=== PATIENT | male | born 1955 | race Caucasian/White ===

== ENCOUNTER 2021-12-07 04:16 | Day surgery (SDC) | payer BC ==
[2021-12-06 11:58] VITALS: BMI 29.6
[2021-12-07] MEDS ORDERED: MIDAZOLAM HCL 2 MG/2 ML SINGLE DOSE VIAL ONE (17:21)
[2021-12-07] MEDS ORDERED: PROPOFOL 20 ML ONE (17:21)
[2021-12-07] MEDS ORDERED: ROCURONIUM BROMIDE 100 MG/10 ML VIAL ONE (17:21)
[2021-12-07] MEDS ORDERED: DEXAMETHASONE SOD PHOSPHATE 4 MG/1 ML VIAL ONE (18:02)
[2021-12-07] MEDS ORDERED: ONDANSETRON 4 MG/2 ML VIAL ONE (18:02)
[2021-12-07] MEDS ORDERED: CLINDAMYCIN PHOSPHATE 600 MG/4 ML VIAL ONE (18:03)
[2021-12-07] MEDS ORDERED: ePHEDrine SULFATE 50 MG/1 ML AMPULE ONE (18:37)
[2021-12-07] MEDS ORDERED: BUPIVACAINE HCL/PF 0.5% (5 MG/ML) 30 ML VIAL IJ ONE (18:41)
[2021-12-07] MEDS ORDERED: CLINDAMYCIN 600 MG PREMIX BAG IVPB ONE (18:41)
[2021-12-07] MEDS ORDERED: ONDANSETRON 4 MG/2 ML VIAL IVPUSH PRN (19:32)
[2021-12-07] MEDS ORDERED: SODIUM CHLORIDE 1,000 ML IV SCH (19:45)
[2021-12-07 20:25] VITALS: BP 126/64; PULSE 68; TEMP 98.2
== END 2021-12-07 20:45 | disposition home or self-care (01) ==
LOC: JASU-SURG 04:16
PROVIDERS: ATTEND Surgery
PROC: 0WHG43Z Insertion of Infusion Device into Peritoneal Cavity, Percutaneous Endoscopic Approach (ICD-10-PCS; principal; 2021-12-07 16:00)
DX: I12.0 Hypertensive chronic kidney disease with stage 5 chronic kidney disease or end stage renal disease (principal); E11.22 Type 2 diabetes mellitus with diabetic chronic kidney disease; N18.6 End stage renal disease; Z99.2 Dependence on renal dialysis; Z79.84 Long term (current) use of oral hypoglycemic drugs
CPT/HCPCS: 82962; 94760; J1644

== ENCOUNTER 2024-09-17 03:57 | Day surgery (SDC) | payer BC ==
[2024-09-17] MEDS ORDERED: HEPARIN NA (PORCINE) 5,000 UNITS/ML 1ML VIAL ONE (07:03)
[2024-09-17] MEDS ORDERED: LIDOCAINE HCL 1%, 10 MG/ML (20ML VIAL) ONE (07:03)
[2024-09-17 07:13] VITALS: BMI 33.4
[2024-09-17] MEDS ORDERED: PAPAVERINE HCL 30 MG/1 ML 10 ML VIAL NR ONE ×2 (07:26→11:16)
[2024-09-17] MEDS ORDERED: MIDAZOLAM HCL 2 MG/2 ML SINGLE DOSE VIAL ONE (07:48)
[2024-09-17] MEDS ORDERED: PROPOFOL 40 ML ONE (07:48)
[2024-09-17] MEDS: ceFAZolin SODIUM 1 GM VIAL IVPB ONE (08:15)
[2024-09-17] MEDS: LIDOCAINE HCL 1%, 10 MG/ML (50 mL VIAL) INF ONE ×2 (08:23)
[2024-09-17] MEDS ORDERED: BACITRACIN ZINC 15 GM TUBE TOPICAL OINTMENT ONE (09:11)
[2024-09-17] MEDS ORDERED: oxyCODONE HCL 5 MG TABLET PO PRN (09:32)
[2024-09-17 11:40] VITALS: BP 146/82; PULSE 66; RESP 18
[2024-09-17 12:15] VITALS: TEMP 98.2
== END 2024-09-17 13:30 | disposition home or self-care (01) ==
LOC: JASU-SURG 03:57
PROVIDERS: ATTEND Surgery
PROC: 031A0ZF Bypass Left Ulnar Artery to Lower Arm Vein, Open Approach (ICD-10-PCS; principal; 2024-09-17 08:00)
DX: I12.0 Hypertensive chronic kidney disease with stage 5 chronic kidney disease or end stage renal disease (principal); E11.22 Type 2 diabetes mellitus with diabetic chronic kidney disease; N18.6 End stage renal disease; Z99.2 Dependence on renal dialysis
CPT/HCPCS: 82962; 94760; J1644